=== PATIENT | male | born 1965 | race Caucasian/White ===

== ENCOUNTER 2024-03-03 11:37 | Inpatient (IN) ==
[2024-03-03 11:50] VITALS: BMI 25.9
--- NOTE | 2024-03-03 12:28 | DR.GENAD ---
HPI Time Seen Time Seen by Provider: 03/03/24 12:28 PCP Primary Care Physician: Laura Alvarez HPI Comment HPI Comment: CVA headache fever generalized weakness and chills since Sunday. Complaint/Symptoms Chief Complaint Doctors Comments: Patient is 58-year-old male in the emergency room with fever, severe headache, chills and generalized weakness since Sunday. Last night patient fell on his face while going to the bathroom. Patient said the headache is the worst ever and it feels like his brain is pulling apart. He is nauseated but no vomiting. Patient have history of pituitary insufficiency prediabetic and history of GERD and hypothyroidism. Patient has been taking Motrin and Tylenol for the pain and fever without improvement. He has discomfort in the upper posterior neck area. He was tested for flu COVID and RSV in primary care at physician office and it was negative. Chief Complaint:: Pt states that since Sunday night pt has had fever up to 103, chills, fatigue, generalized weakness, and severe constant headache "all over head". Pt describes pain as "feels like my head is being pulled apart." Pt c/o worst headache of his life. Pt did pass out while walking to the bathroom last night and is noted to have small abrasion to the bridge of the nose. Self Treatment fo Chief Complaint: Pt has been taking Tylenol and Motrin with no improvement of symptoms. Pt last took Motrin 800mg po around 5am today. Pt was seen in PCP office and was negative for flu and covid. COVID-19 Coronavirus risk:travel/contact w/high risk person: No Has patient experienced Coronavirus symptoms: No Coronavirus symptoms experienced: Fever Nurses notes reviewed Nurses Notes Review: Yes Source History Provided: Patient Mode of Arrival Mode of Arrival: Ambulatory Timing Onset of Chief Complaint: 03/01/24 PMH PMH Past Medical History: Yes Past Medical History: GERD and Hypothyroidism Past Medical History Comment: Pituitary insufficiency, Prediabetes Past Surgical History: Yes Past Surgical History Comment: Nissian Fundiplication Family History History of Family Medical Conditions: Yes Family Medical History: Cancer Social History Does patient currently use any type of tobacco product: No Have you used tobacco products in the last 12 months: No Type of Tobacco Use: None Does any household member use tobacco: No Alcohol Use: None Do you use any recreational Drugs:: No Lives With: Spouse Lives Where: Home Travel Risk Coronavirus risk:travel/contact w/high risk person: No Has patient experienced Coronavirus symptoms: No Infectious screening In the last 2 months have you had wt loss of >10#?: NO Have you had fever, night sweats or hemotysis?: No Have you traveled outside the country in the last 6 months?: No Isolation: Standard ROS Review of Systems Constitutional: Chills, Fever, Weakness and Fatigue Eyes: No Symptoms Reported ENTM: No Symptoms Reported; negative Ear Pain, Nose Discharge, Nose Congestion or Throat Pain Respiratoy: No Symptoms Reported; negative Moist Cough, Short of Breath or Wheezing Cardiovascular: No Symptoms Reported; negative Chest Pain or Edema Gastrointestinal/Abdominal: No Symptoms Reported; negative Abdominal Pain, Diarrhea, Nausea or Vomiting Genitourinary: No Symptoms Reported; negative Dysuria Neurological: No Symptoms Reported, Headache, Weakness and Dizziness Musculoskeletal: Muscle Pain and Neck Pain Integumentary: Wound (Abrasion on the nose.) Hematologic/Lymphatic: No Symptoms Reported Endocrine: No Symptoms Reported Psychiatric: No Symptoms Reported All Other Systems: Reviewed and Negative PE Vital Signs Vitals: Vital Signs Temperature 99.8 F Temperature 100.6 F Temperature 98.6 F Pulse Rate 88 Pulse Rate 85 Pulse Rate 87 Pulse Rate 87 Pulse Rate 91 Pulse Rate 92 Pulse Rate 92 Pulse Rate 92 Pulse Rate 92 Pulse Rate 91 Pulse Rate 84 Pulse Rate 83 Pulse Rate 84 Pulse Rate 89 Pulse Rate 85 Pulse Rate 89 Pulse Rate 92 Pulse Rate 91 Pulse Rate 94 Pulse Rate 94 Pulse Rate 93 Pulse Rate 97 Pulse Rate 94 Pulse Rate 104 Pulse Rate 104 Respiratory Rate 21 Respiratory Rate 18 Respiratory Rate 21 Respiratory Rate 20 Respiratory Rate 19 Respiratory Rate 16 Respiratory Rate 16 Respiratory Rate 19 Respiratory Rate 16 Respiratory Rate 18 Respiratory Rate 19 Respiratory Rate 15 Respiratory Rate 12 Respiratory Rate 17 Respiratory Rate 17 Respiratory Rate 20 Respiratory Rate 15 Respiratory Rate 20 Respiratory Rate 22 Respiratory Rate 17 Respiratory Rate 20 Respiratory Rate 37 Respiratory Rate 18 Respiratory Rate 23 Blood Pressure 109/68 Blood Pressure 109/68 Blood Pressure 121/62 Blood Pressure 128/62 Blood Pressure 126/61 Blood Pressure 125/62 Blood Pressure 125/70 O2 Sat by Pulse Oximetry 97 O2 Sat by Pulse Oximetry 96 O2 Sat by Pulse Oximetry 100 O2 Sat by Pulse Oximetry 92 O2 Sat by Pulse Oximetry 95 O2 Sat by Pulse Oximetry 91 O2 Sat by Pulse Oximetry 91 O2 Sat by Pulse Oximetry 94 O2 Sat by Pulse Oximetry 95 General Limitations: No Limitations General Appearance: Alert and In No Apparent Distress Head Head Exam: Normal Inspection and Atraumatic Eyes Eye exam: Normal Appearance; negative Scleral Icterus or Conjunctival Injection ENT ENT Exam: Normal Exam, Normal Oropharynx, Normal External Ear Exam and TM's Normal Bilaterally External Ear Exam: Normal External Inspection; negative Mastoid Tenderness TM/Canal Exam: Bilateral: Normal Nose Exam: Normal Nose Exam Mouth Exam: Normal Inspection Throat Exam: Tonsillar Erythema; negative Tonsillomegaly or Tonsillar Exudate Neck Neck Exam: Full ROM (Range of motion intact with neck discomfort. No obvious stiffness.), Trachea Midline and Tenderness (Posterior upper neck tenderness.) Chest Chest Inspection: Normal Inspection and Symmetric Chest Wall Rise; negative Tenderness Respiratory Respiratory Exam: Normal Lung Sounds Bilat; negative Accessory Muscle Use, Chest Wall Tenderness or Respiratory Distress Respiratory Exam: Bilateral: Clear to Auscultation Cardiovascular Cardiovascular Exam: Regular Rate, Normal Rhythm and Normal Heart Sounds; negative Systolic Murmur or Diastolic Murmur Abdominal Exam Abdominal Exam: Normal Inspection, Normal Bowel Sounds and Soft; negative Tenderness Extremities Extremities Exam: Normal Inspection and Normal Capillary Refill; negative Tenderness Back Back Exam: Normal Inspection; negative (R) CVA Tenderness, (L) CVA Tenderness or Paraspinal Tenderness Neurologic Neurological Exam: Alert and Oriented X3; negative Motor Sensory Deficit Psychiatric Psychiatric Exam: Normal Affect and Normal Mood Skin Skin Exam: Warm, Intact and Other (Abrasion on bridge of nose. With tenderness.) MDM Additional Information Additional Information Obtained From: Family Differential Diagnosis Differential Diagnosis: Fever, headache, neck pain, rule out meningitis, history hypothyroidism his COURSE Treatment Treatment: See orders done while patient was in the emergency room. Labs CT and x-ray was discussed with patient. Patient had persistent headache was given IV medication for pain and the headache was just slightly decreased. Patient had LP done by anesthesia and preliminary labs did not indicate meningitis. Cultures are still pending. Patient opening pressure on LP was elevated AT 28 cm after patient was admitted to hospital for further management. This was discussed with admitting doctor and patient was started on mannitol IV drip. Consultation Consultation Comments: Discussed patient with Dr. Kenney, he will admit patient for further management. Education/Counseling Education/Counseling: Patient and Family Educated On: Treatment and Diagnosis ROR Labs Reviewed Laboratory Results Reviewed?: Yes 03/03/24 12:43 03/03/24 12:43 Laboratory: 03/03/24 17:15 Cerebral Spinal Fluid Gram Stain - Final WBC 12.0 X10^3/uL (3.6-10.0) H 03/03/24 12:43 RBC 5.10 X10^6/uL (4.7-6.0) 03/03/24 12:43 Hgb 13.9 g/dL (13.5-18.0) 03/03/24 12:43 Hct 42.0 % (42.0-54.0) 03/03/24 12:43 MCV 82.2 fL (80.0-100.0) 03/03/24 12:43 MCH 27.2 pg (27.0-34.0) 03/03/24 12:43 MCHC 33.1 g/dL (33.0-35.0) 03/03/24 12:43 RDW 15.6 % (11.6-16.5) 03/03/24 12:43 Plt Count 254 X10^3/uL (150.0-450.0) 03/03/24 12:43 MPV 7.8 fL (7.4-11.0) 03/03/24 12:43 Neut % (Auto) 79.4 % (42.0-75.0) H 03/03/24 12:43 Lymph % (Auto) 4.5 % (21.0-51.0) L 03/03/24 12:43 [place] % (Auto) 15.0 % (0.0-13.0) H 03/03/24 12:43 Eos % (Auto) 0.6 % (0.9-2.9) L 03/03/24 12:43 Baso % (Auto) 0.5 % (0.2-1.0) 03/03/24 12:43 Neut # (Auto) 9.5 x10^3/uL (2.2-4.8) H 03/03/24 12:43 Lymph # (Auto) 0.5 X10^3/uL (1.3-2.9) L 03/03/24 12:43 [place] # (Auto) 1.8 x10^3/uL (0.3-0.8) H 03/03/24 12:43 Eos # (Auto) 0.1 x10^3/uL (0.0-0.2) 03/03/24 12:43 Baso # (Auto) 0.1 X10^3/uL (0.0-0.1) 03/03/24 12:43 Absolute Nucleated RBC 0.0 /100WBC 03/03/24 12:43 Sodium 132 mmol/L (136-145) L 03/03/24 12:43 Corrected Sodium TNP 03/03/24 12:43 Potassium 4.3 mmol/L (3.5-5.1) 03/03/24 12:43 Chloride 99 mmol/L (98-107) 03/03/24 12:43 Carbon Dioxide 28.3 mmol/L (21-32) 03/03/24 12:43 BUN 13 mg/dL (7-18) 03/03/24 12:43 Creatinine 1.37 mg/dL (0.70-1.30) H 03/03/24 12:43 Est GFR (MDRD) Af Amer > 60 (>60) 03/03/24 12:43 Est GFR (MDRD) Non-Af 57 (>60) L 03/03/24 12:43 Glucose 98 mg/dL (65-99) 03/03/24 12:43 Lactic Acid 1.1 mmol/L (0.4-2.0) 03/03/24 12:43 Calcium 8.3 mg/dL (8.5-10.1) L 03/03/24 12:43 Corrected Calcium 9.0 mg/dL (8.5-10.1) 03/03/24 12:43 Total Bilirubin 0.50 mg/dL (0.2-1.0) 03/03/24 12:43 AST 23 Units/L (15-37) 03/03/24 12:43 ALT 35 Units/L (12-78) 03/03/24 12:43 Alkaline Phosphatase 67 Units/L (46-116) 03/03/24 12:43 Total Protein 7.7 g/dL (6.4-8.2) 03/03/24 12:43 Albumin 3.1 g/dL (3.4-5.0) L 03/03/24 12:43 Globulin 4.6 g/dL (2.5-4.5) H 03/03/24 12:43 Albumin/Globulin Ratio 0.7 Ratio (1.1-2.1) L 03/03/24 12:43 Specimen Type Clean catch urine 03/03/24 14:35 Urine Color Yellow (YELLOW) 03/03/24 14:35 Urine Appearance Clear (CLEAR) 03/03/24 14:35 Urine pH 7.0 (5.0 - 8.0) 03/03/24 14:35 Ur Specific [place] 1.015 (1.000-1.030) 03/03/24 14:35 Urine Protein 3+ (NEGATIVE) 03/03/24 14:35 Urine Glucose (UA) Negative (NEGATIVE) 03/03/24 14:35 Urine Ketones 2+ (NEGATIVE) 03/03/24 14:35 Urine Blood 1+ (NEGATIVE) 03/03/24 14:35 Urine Nitrite Negative (NEGATIVE) 03/03/24 14:35 Urine Bilirubin Negative (NEGATIVE) 03/03/24 14:35 Urine Urobilinogen 1+ (NORMAL) 03/03/24 14:35 Ur Leukocyte Esterase 1+ (NEGATIVE) 03/03/24 14:35 Urine RBC 3-5 /HPF (0-3) A 03/03/24 14:35 Urine WBC 0-2 /HPF (0-5) 03/03/24 14:35 Ur Squamous Epith Cells Negative /HPF (NEGATIVE) 03/03/24 14:35 Urine Bacteria Negative /HPF (NEGATIVE) 03/03/24 14:35 Ur Culture Indicated? No/not indicated 03/03/24 14:35 CSF WBC 0 Cubic mm (0-5) 03/03/24 17:15 CSF Neutrophils Not Reportable 03/03/24 17:15 CSF Lymphocytes Not Reportable 03/03/24 17:15 CSF Glucose 58 mg/dl (40-75) 03/03/24 17:15 CSF Total Protein 52.1 mg/dL (15-45) H 03/03/24 17:15 SARS-CoV-2 (PCR) Negative (NEGATIVE) 03/03/24 20:04 Influenza Type A (PCR) Negative (NEGATIVE) 03/03/24 20:04 Influenza Type B (PCR) Negative (NEGATIVE) 03/03/24 20:04 RSV (PCR) Negative (NEGATIVE) 03/03/24 20:04 XRAY XRAY Interpreted by: Radiologist (Report noted.) and Self Opioid Opioid Risk Tool Age (Raphael box if 16-45): No History of Preadolescent Sexual Abuse: No Total: 0 Total Score Risk Category: Low Risk Copyright: Angel Luis PÉREZ predicting aberrant behaviors Discharge Plan Diagnosis Discharge Problem: Fever, Headache Discharge Plan Patient Disposition: 01 HOME, SELF-CARE Condition: Stable
[2024-03-03] MEDS: ZOFRAN INJ 4 MG VIAL IVP ONE ×2 (12:50→14:32)
[2024-03-03] MEDS: MORPHINE SULFATE INJ 4 MG IVP ONE (12:50)
[2024-03-03] MEDS: NS 1,000 ML IV 1,000 ML IV SCH (12:51)
[2024-03-03 13:05] LABS: BASOPHILS # (AUTO) 0.1 X10^3/uL (0.0-0.1); BASOPHILS % (AUTO) 0.5 % (0.2-1.0); EOSINOPHILS # (AUTO) 0.1 x10^3/uL (0.0-0.2); EOSINOPHILS % (AUTO) 0.6 % (0.9-2.9); HEMOGLOBIN 13.9 g/dL (13.5-18.0); LYMPHOCYTES # (AUTO) 0.5 X10^3/uL (1.3-2.9); LYMPHOCYTES % (AUTO) 4.5 % (21.0-51.0); MEAN CORPUSCULAR HEMOGLOBIN 27.2 pg (27.0-34.0); MEAN CORPUSCULAR HGB CONC 33.1 g/dL (33.0-35.0); MEAN CORPUSCULAR VOLUME 82.2 fL (80.0-100.0); MEAN PLATELET VOLUME 7.8 fL (7.4-11.0); MONOCYTES # (AUTO) 1.8 x10^3/uL (0.3-0.8); NEUTROPHILS # (AUTO) 9.5 x10^3/uL (2.2-4.8); NEUTROPHILS % (AUTO) 79.4 % (42.0-75.0); PLATELET COUNT 254 X10^3/uL (150.0-450.0); RED CELL DISTRIBUTION WIDTH 15.6 % (11.6-16.5)
[2024-03-03 13:15] LABS: ALANINE AMINOTRANSFERASE 35 Units/L (12-78); ALBUMIN 3.1 g/dL (3.4-5.0); ALKALINE PHOSPHATASE 67 Units/L (46-116); ASPARTATE AMINO TRANSFERASE 23 Units/L (15-37); BLOOD UREA NITROGEN 13 mg/dL (7-18); CALCIUM 8.3 mg/dL (8.5-10.1); CARBON DIOXIDE 28.3 mmol/L (21-32); CHLORIDE 99 mmol/L (98-107); CREATININE 1.37 mg/dL (0.70-1.30); GLUCOSE 98 mg/dL (65-99); POTASSIUM 4.3 mmol/L (3.5-5.1); SODIUM 132 mmol/L (136-145); TOTAL PROTEIN 7.7 g/dL (6.4-8.2); eGFR NON BLACK RACES 57 (>60)
--- NOTE | 2024-03-03 13:16 | CT ---
EXAM:BRAIN W/O CONHISTORY:TraumaCOMPARISON:None available.TECHNIQUE:Multiple axial images of the brain were obtained from the skull base to the vertex without administration of IV contrast. Dose reduction techniques including Automated Exposure Control (AEC) and adjustment of mA and kV were utilized.FINDINGS:No acute intraparenchymal hemorrhage or mass can be identified. No extra-axial fluid collections are seen. No alteration in the attenuation of the brain parenchyma can be identified to suggest acute or subacute ischemic change. The ventricular system is symmetric and nondilated. The extracranial structures appear unremarkable.IMPRESSION:1. No acute intracranial process can be identified.THIS IS AN ELECTRONICALLY VERIFIED FINAL REPORT03/03/2024 1:13 PM - Electronically signed by Luis Daniel Saul MD
[2024-03-03] MEDS: TORADOL 30 MG VIAL IVP ONE (13:50)
[2024-03-03] MEDS: DILAUDID INJ IVP ONE (14:32)
[2024-03-03 14:57] LABS: BILIRUBIN,URINE NEGATIVE (NEGATIVE); BLOOD/HEMOGLOBIN,URINE 1+ (NEGATIVE); GLUCOSE, URINE NEGATIVE (NEGATIVE); KETONES,URINE 2+ (NEGATIVE); LEUKOCYTE ESTERASE ,URINE 1+ (NEGATIVE); NITRITES,URINE NEGATIVE (NEGATIVE); PROTEIN,URINE 3+ (NEGATIVE); UROBILINOGEN,URINE 1+ (NORMAL)
[2024-03-03 14:59] LABS: APPEARANCE,URINE CLEAR (CLEAR); BACTERIA,URINE NEGATIVE /HPF (NEGATIVE); COLOR,URINE YELLOW (YELLOW); SQUAMOUS EPITHELIAL CELL,UR NEGATIVE /HPF (NEGATIVE)
[2024-03-03] MEDS: OFIRMEV IV 1000 MG VIAL 1,000 MG/100 ML VIAL IV ONE ×2 (16:16→22:27)
[2024-03-03] MEDS: ROCEPHIN VIAL 2 GRAMS IV ONE (17:41)
[2024-03-03 17:54] LABS: TOTAL PROTEIN,CSF 52.1 mg/dL (15-45)
[2024-03-03 18:15] LABS: GLUCOSE,CSF 58 mg/dl (40-75)
[2024-03-03 19:11] LABS: WHITE BLOOD CELL,CSF 0 Cubic mm (0-5)
[2024-03-03] MEDS ORDERED: ZOFRAN INJ 4 MG VIAL IVP PRN (21:30)
[2024-03-03] MEDS ORDERED: NS 1,000 ML IV 1,000 ML IV SCH (21:30)
[2024-03-03] MEDS: TORADOL 30 MG VIAL IVP PRN (22:09)
[2024-03-03] MEDS: VIBRAMYCIN 100 MG in D5W 250 ML IV 250 ML IV SCH (22:09)
[2024-03-03] MEDS: DILAUDID INJ ONE (22:27)
[2024-03-03] MEDS: ZOFRAN INJ 4 MG VIAL ONE (22:27)
[2024-03-03] MEDS: DILAUDID INJ IVP PRN (23:39)
[2024-03-04] MEDS: MANNITOL 500 ML IV ONE (05:09)
[2024-03-04] MEDS: DRUG FILTER EXTENSION SET ONE (05:21)
[2024-03-04] MEDS: ROCEPHIN VIAL 2 GRAMS 2 G in NS 100 ML IV 100 ML IV SCH (05:49)
[2024-03-04 06:15] LABS: BASOPHILS % (AUTO) 0.4 % (0.2-1.0); EOSINOPHILS # (AUTO) 0.1 x10^3/uL (0.0-0.2); HEMATOCRIT 36.6 % (42.0-54.0); HEMOGLOBIN 12.2 g/dL (13.5-18.0); LYMPHOCYTES # (AUTO) 0.4 X10^3/uL (1.3-2.9); LYMPHOCYTES % (AUTO) 4.5 % (21.0-51.0); MEAN CORPUSCULAR HEMOGLOBIN 27.2 pg (27.0-34.0); MEAN CORPUSCULAR HGB CONC 33.3 g/dL (33.0-35.0); MEAN CORPUSCULAR VOLUME 81.9 fL (80.0-100.0); MONOCYTES # (AUTO) 1.4 x10^3/uL (0.3-0.8); MONOCYTES % (AUTO) 15.9 % (0.0-13.0); NEUTROPHILS # (AUTO) 6.7 x10^3/uL (2.2-4.8); NEUTROPHILS % (AUTO) 78.2 % (42.0-75.0); PLATELET COUNT 195 X10^3/uL (150.0-450.0); RED BLOOD COUNT 4.48 X10^6/uL (4.7-6.0); RED CELL DISTRIBUTION WIDTH 15.6 % (11.6-16.5); WHITE BLOOD COUNT 8.6 X10^3/uL (3.6-10.0)
[2024-03-04 06:39] LABS: ALANINE AMINOTRANSFERASE 24 Units/L (12-78); ALBUMIN 2.3 g/dL (3.4-5.0); ALKALINE PHOSPHATASE 58 Units/L (46-116); ASPARTATE AMINO TRANSFERASE 20 Units/L (15-37); BLOOD UREA NITROGEN 17 mg/dL (7-18); CALCIUM 7.6 mg/dL (8.5-10.1); CARBON DIOXIDE 22.3 mmol/L (21-32); CHLORIDE 100 mmol/L (98-107); COR NA(FOR HYPERGLY) 132 mmol/L (136-145); CREATININE 1.49 mg/dL (0.70-1.30); GLUCOSE 192 mg/dL (65-99); MAGNESIUM 1.5 mg/dL (2.0-2.9); POTASSIUM 4.1 mmol/L (3.5-5.1); SODIUM 130 mmol/L (136-145); TOTAL PROTEIN 6.3 g/dL (6.4-8.2); eGFR NON BLACK RACES 52 (>60)
[2024-03-04] MEDS ORDERED: CONSULT PHARMACY - POTASSIUM & MAGNESIUM XX SCH (07:00)
[2024-03-04] MEDS: MANNITOL IV ONE (07:27)
[2024-03-04] MEDS: BETADINE SOLN ONE (07:28)
[2024-03-04] MEDS: NS 1,000 ML IV 1,000 ML with MAGNESIUM SULFATE 50% INJ VIAL 1 G IV SCH ×2 (08:31→10:22)
[2024-03-04] MEDS ORDERED: PHARMACY CONSULT - IVERMECTIN XX SCH (10:00)
[2024-03-04] MEDS: PREDNISONE TAB 10 MG PO SCH (10:15)
[2024-03-04] MEDS: IVERMECTIN PO ONE (10:16)
[2024-03-04] MEDS ORDERED: NS 1,000 ML IV 1,000 ML IV SCH (12:00)
[2024-03-04] MEDS: NS IV ONE (12:40)
[2024-03-04] MEDS: MAGNESIUM SULFATE IV ONE (12:40)
--- NOTE | 2024-03-04 17:01 | RAD ---
EXAM: Chest x-ray two views HISTORY: FEVER, COUGH - COMPARISON: Chest CT 03/31/2021 FINDINGS: Heart is normal in size. Right lung appears clear. Vague left basilar density is seen that could be pneumonia. There is questionable mild vague infiltrate in the mid left lung but this could be artif actual from patient's size. There may be small left pleural effusion. IMPRESSION: Possible left lower lobe pneumonia and mild involvement of the left upper lobe is not excluded. Cont inued x-ray follow up to document resolution is recommended. THIS IS AN ELECTRONICALLY VERIFIED FINAL REPORT 03/04/2024 4:58 PM - Electronically signed by Connor Auguste MD
[2024-03-04] MEDS: NS 1,000 ML IV 1,000 ML IV SCH (17:06)
[2024-03-04] MEDS: MAG-OX TAB PO SCH (20:38)
[2024-03-05 05:17] LABS: BASOPHILS % (AUTO) 0.4 % (0.2-1.0); EOSINOPHILS # (AUTO) 0.2 x10^3/uL (0.0-0.2); EOSINOPHILS % (AUTO) 2.4 % (0.9-2.9); HEMATOCRIT 32.8 % (42.0-54.0); LYMPHOCYTES # (AUTO) 0.6 X10^3/uL (1.3-2.9); LYMPHOCYTES % (AUTO) 9.6 % (21.0-51.0); MEAN CORPUSCULAR HEMOGLOBIN 27.2 pg (27.0-34.0); MEAN CORPUSCULAR HGB CONC 33.4 g/dL (33.0-35.0); MEAN CORPUSCULAR VOLUME 81.5 fL (80.0-100.0); MEAN PLATELET VOLUME 8.3 fL (7.4-11.0); MONOCYTES # (AUTO) 1.6 x10^3/uL (0.3-0.8); MONOCYTES % (AUTO) 23.3 % (0.0-13.0); NEUTROPHILS # (AUTO) 4.3 x10^3/uL (2.2-4.8); NEUTROPHILS % (AUTO) 64.3 % (42.0-75.0); PLATELET COUNT 203 X10^3/uL (150.0-450.0); RED BLOOD COUNT 4.03 X10^6/uL (4.7-6.0); RED CELL DISTRIBUTION WIDTH 15.6 % (11.6-16.5); WHITE BLOOD COUNT 6.7 X10^3/uL (3.6-10.0)
[2024-03-05 05:34] LABS: PLATELET MORPHOLOGY COMMENT NORMAL (NORMAL)
[2024-03-05 05:35] LABS: ALANINE AMINOTRANSFERASE 26 Units/L (12-78); ALBUMIN 2.1 g/dL (3.4-5.0); ALKALINE PHOSPHATASE 60 Units/L (46-116); ASPARTATE AMINO TRANSFERASE 17 Units/L (15-37); BLOOD UREA NITROGEN 16 mg/dL (7-18); CALCIUM 7.5 mg/dL (8.5-10.1); CHLORIDE 100 mmol/L (98-107); COR NA(FOR HYPERGLY) 131 mmol/L (136-145); CREATININE 1.29 mg/dL (0.70-1.30); GLUCOSE 118 mg/dL (65-99); POTASSIUM 4.2 mmol/L (3.5-5.1); SODIUM 131 mmol/L (136-145); eGFR NON BLACK RACES > 60 (>60)
[2024-03-05 05:40] LABS: CARBON DIOXIDE 23.3 mmol/L (21-32)
[2024-03-05] MEDS ORDERED: PERCOCET TAB 5/325 MG PO PRN (09:13)
[2024-03-05] MEDS ORDERED: ROXICODONE TAB 5 MG PO PRN (09:14)
[2024-03-05] MEDS: PERCOCET TAB 5/325 MG PO PRN (09:38)
[2024-03-05] MEDS ORDERED: PHARMACY CONSULT - IVERMECTIN XX SCH (10:00)
[2024-03-05] MEDS: IVERMECTIN PO NR (10:07)
[2024-03-05] MEDS: CORTEF PO NR (10:07)
[2024-03-05] MEDS: CORTEF ONE ×2 (10:11→17:09)
[2024-03-05] MEDS ORDERED: CORTEF ONE (12:21)
[2024-03-05] MEDS: CORTEF PO SCH ×2 (12:28→17:04)
[2024-03-06 05:18] LABS: BASOPHILS % (AUTO) 0.3 % (0.2-1.0); EOSINOPHILS # (AUTO) 0.1 x10^3/uL (0.0-0.2); EOSINOPHILS % (AUTO) 1.7 % (0.9-2.9); HEMATOCRIT 33.5 % (42.0-54.0); LYMPHOCYTES # (AUTO) 0.9 X10^3/uL (1.3-2.9); LYMPHOCYTES % (AUTO) 11.7 % (21.0-51.0); MEAN CORPUSCULAR HEMOGLOBIN 26.8 pg (27.0-34.0); MEAN CORPUSCULAR HGB CONC 32.9 g/dL (33.0-35.0); MEAN CORPUSCULAR VOLUME 81.4 fL (80.0-100.0); MEAN PLATELET VOLUME 8.3 fL (7.4-11.0); MONOCYTES # (AUTO) 1.3 x10^3/uL (0.3-0.8); NEUTROPHILS # (AUTO) 5.4 x10^3/uL (2.2-4.8); NEUTROPHILS % (AUTO) 69.3 % (42.0-75.0); PLATELET COUNT 240 X10^3/uL (150.0-450.0); RED BLOOD COUNT 4.11 X10^6/uL (4.7-6.0); RED CELL DISTRIBUTION WIDTH 15.7 % (11.6-16.5); WHITE BLOOD COUNT 7.8 X10^3/uL (3.6-10.0)
[2024-03-06 05:33] LABS: ALANINE AMINOTRANSFERASE 27 Units/L (12-78); ALKALINE PHOSPHATASE 56 Units/L (46-116); ASPARTATE AMINO TRANSFERASE 18 Units/L (15-37); BLOOD UREA NITROGEN 16 mg/dL (7-18); CALCIUM 7.9 mg/dL (8.5-10.1); CARBON DIOXIDE 23.8 mmol/L (21-32); CHLORIDE 103 mmol/L (98-107); COR CA(FOR HYPOALB) 9.5 mg/dL (8.5-10.1); GLUCOSE 90 mg/dL (65-99); POTASSIUM 4.1 mmol/L (3.5-5.1); SODIUM 134 mmol/L (136-145); TOTAL PROTEIN 6.1 g/dL (6.4-8.2); eGFR NON BLACK RACES > 60 (>60)
[2024-03-06 09:03] VITALS: O2SAT 92
[2024-03-06 09:13] VITALS: TEMP 99
[2024-03-06] MEDS: IVERMECTIN PO NR (09:51)
[2024-03-06] MEDS ORDERED: PHARMACY CONSULT - IVERMECTIN XX SCH (10:00)
[2024-03-06] MEDS: VIBRAMYCIN PO SCH (10:02)
[2024-03-06 10:10] VITALS: BP 146/78; PULSE 82; RESP 35
== END 2024-03-06 11:00 | disposition home or self-care (01) | DRG 103 ==
LOC: MED/SURG 11:37 → ER 11:37 → OBSVTOIN 20:33 → MED/SURG 21:50 → ICU 03-04 04:43
PROVIDERS: ADMIT Obstetrics & Gynecology Obstetrics; ATTEND Obstetrics & Gynecology Obstetrics